=== PATIENT | female | born 1970 | race Caucasian/White ===

== ENCOUNTER 2023-02-20 12:11 | Outpatient (CLI) | payer OTHER | END 2023-02-20 12:12 | disposition home or self-care (01) | LOC: CSHRAD 12:11 | PROVIDERS: ATTEND Neurological Surgery | DX: M54.2 Cervicalgia (principal); M54.16 Radiculopathy, lumbar region; Z98.890 Other specified postprocedural states; M47.812 Spondylosis without myelopathy or radiculopathy, cervical region | CPT/HCPCS: 72040 ==

== ENCOUNTER 2023-03-07 12:05 | Emergency (ER) | payer OTHER ==
[2023-03-07] MEDS ORDERED: Ketorolac Tromethamine 30 MG (1 mL) VIAL ONE (13:24)
[2023-03-07 14:01] LABS: SARS-CoV-2 NAA Rapid Test DETECTED (NotDetected)
== END 2023-03-07 14:33 | disposition home or self-care (01) ==
LOC: CSHERS 12:05
DX: U07.1 COVID-19 (principal); M25.561 Pain in right knee; G89.29 Other chronic pain
CPT/HCPCS: 71046; 96372; J1885